=== PATIENT | female | born 1955 | race Caucasian/White ===

== ENCOUNTER 2019-03-11 07:55 | Day surgery (SDC) | payer OTHER ==
[2019-03-11] MEDS ORDERED: NEOSTIGMINE 3 MG/3 ML SYRINGE (08:36)
[2019-03-11] MEDS ORDERED: GLYCOPYRROLATE 0.4 MG INJ (08:36)
[2019-03-11] MEDS ORDERED: PROPOFOL 20 ML (08:36)
[2019-03-11] MEDS ORDERED: ROCURONIUM 50 MG INJ (08:36)
[2019-03-11] MEDS ORDERED: CEFAZOLIN 1 GM INJ (08:36)
[2019-03-11] MEDS ORDERED: FENTAnyl 50 MCG/ML VIAL (08:37)
[2019-03-11] MEDS ORDERED: MIDAZOLAM 1 MG/ML 2 ML INJ (08:37)
[2019-03-11] MEDS ORDERED: ONDANSETRON 4 MG INJ (08:37)
[2019-03-11] MEDS ORDERED: DEXAMETHASONE 4 MG/ML 5 ML INJ (08:37)
[2019-03-11] MEDS ORDERED: ROPIVACAINE 0.5 % 30 ML VIAL (08:38)
[2019-03-11] MEDS ORDERED: LACTATED RINGER'S 1,000 ML IV (09:00)
[2019-03-11] MEDS ORDERED: HYDROmorphONE 1 MG/5 ML IV SYRINGE IV ×2 (09:30)
[2019-03-11] MEDS ORDERED: FENTAnyl 50 MCG/ML VIAL IV ×2 (09:30)
[2019-03-11] MEDS ORDERED: OXYCODONE/ACETAMINOPHEN (5/325) TAB PO (09:30)
[2019-03-11] MEDS ORDERED: TRIMETHOBENZAMIDE 100 MG/ML VIAL IM (09:30)
[2019-03-11] MEDS ORDERED: hydrALAzine 20 MG INJ IV (09:30)
[2019-03-11] MEDS ORDERED: MIDAZOLAM 1 MG/ML 2 ML INJ IV (09:30)
[2019-03-11] MEDS ORDERED: LABETALOL HCL 20MG INJ IV (09:30)
[2019-03-11] MEDS ORDERED: MEPERIDINE 25 MG INJ IV (09:30)
[2019-03-11] MEDS ORDERED: IPRATROPIUM (NEB) 0.5 MG/2.5 ML AMP HHN (09:30)
[2019-03-11] MEDS ORDERED: EPHEDrine 25 MG/5 ML SYG IV (09:30)
[2019-03-11] MEDS ORDERED: DIPHENHYDRAMINE 50 MG INJ IV (09:30)
[2019-03-11] MEDS ORDERED: ALBUTEROL 0.083% (NEB) 2.5 MG/3 ML AMP HHN (09:30)
[2019-03-11] MEDS ORDERED: NEOMYC/POLYMYX/BACIT 30 GM OINT (09:39)
[2019-03-11] MEDS: POLYMYXIN/BACITRACIN 1L IRRIG (10:16)
[2019-03-11] MEDS: FENTAnyl 50 MCG/ML VIAL IV (11:27)
[2019-03-11] MEDS: ONDANSETRON 4 MG INJ IV (11:27)
[2019-03-11] MEDS: HYDROmorphONE 1 MG/5 ML IV SYRINGE IV (11:28)
[2019-03-11] MEDS: KETOROLAC 30 MG INJ IV (11:56)
[2019-03-11] MEDS ORDERED: morphine 2 MG INJ IV (12:00)
[2019-03-11] MEDS: OXYCODONE/ACETAMINOPHEN (5/325) TAB PO (12:59)
== END 2019-03-11 13:49 | disposition home or self-care (01) ==
LOC: SDS 07:55
DX: M72.2 Plantar fascial fibromatosis (principal)
CPT/HCPCS: 28060; 82306